=== PATIENT | female | born 1930 | race Caucasian/White ===

== ENCOUNTER 2017-02-12 16:58 | Emergency (ER) | payer MEDICARE, OTHER ==
[2017-02-12] MEDS ORDERED: ACETAMINOPHEN 325 MG TABLET ONE (17:19)
[2017-02-12] MEDS ORDERED: ACETAMINOPHEN 325 MG TABLET PO ONE (17:19)
[2017-02-12 17:36] LABS: Hematocrit 39.8 % (37.0-47.0); Hemoglobin 13.7 gm/dL (12.5-16.0); Mean Cell Volume 86.5 fl (78-100); Mean Corpuscular Hemoglobin 29.8 pg (27-31); Mean Corpuscular Hgb Conc 34.4 g/dl (32-36); Mean Platelet Volume 9.9 fl (6.0-9.5); Neutrophil # 7.4 K/mm3 (1.3-6.0); Neutrophil % 87.1 % (42-75.0); Platelet Count 216 K/mm3 (150-450); Red Cell Distribution Width 12.4 % (11.5-14.0); White Blood Count 8.4 K/mm3 (4.0-10.5)
--- NOTE | 2017-02-12 17:48 | ERNOTE ---
Time Seen by Provider: 02/12/17 17:18 Stated Complaint: COLD.DIZZY. Presenting Symptoms:: cough Source: patient, family Exam Limitations: no limitations Immunizations: IMMUNIZATION HX Immunizations Up to Date Yes History of Influenza Vaccine Yes Hx Pneumococcal Vaccination Yes Allergies/Adverse Reactions: Allergies penicillin G Adverse Reaction (Verified 06/16/15 10:02) Home Medications: HOME MEDICATIONS Multivitamin [Multi Vitamin Daily] 1 each PO DAILY 09/09/13 [Last Taken Unknown] Ibuprofen [Motrin] 200 mg PO PRN PRN 06/16/15 [Last Taken Unknown] Azithromycin [Zithromax] 250 mg PO DAILY #6 tablet 02/12/17 [Last Taken Unknown] Benzonatate [Tessalon Perle] 100 mg PO TID #20 capsule 02/12/17 [Last Taken Unknown] - History of Present Ilness Narrative: Patient presents with cough and congestion that started this morning. Complains of a low-grade fever and states that is yellowish phlegm that she is coughing up. Timing: intermittent Severity: mild Frequency/Possible Cause: Reports: occasional episodes Modifying Factors - Improves: Reports: nothing Modifying Factors - Worsens: Reports: nothing Associated Symptoms: Reports: cough Review of Systems - Review of Systems Constitutional: Present: See HPI EYE: Present: no symptoms reported ENT: Present: no symptoms reported Respiratory: Present: See HPI Cardiology: Present: no symptoms reported Gastrointestinal/Abdominal: Present: no symptoms reported Genitourinary: Present: no symptoms reported Musculoskeletal: Present: no symptoms reported Skin: Present: no symptoms reported Neurological: Present: no symptoms reported Endocrine: Present: no symptoms reported Hematologic/Lymphatic: Present: no symptoms reported Psych: Present: no symptoms reported - Patient's Past Medical History Patient History - Medical: Other Patient History - Cardiac/Respiratory: No pertinent hx Patient History - Cancer: No Hx of Cancer Patient History - Surgical Procedures: Colon Resection, Tubal Ligation, T & A Patient History - Other: None LMP (females 10-50): Menopausal - Social History Living Situations: home Abuse History: No History of abuse Psych History: No pertinent hx Does anyone smoke in the home?: No Smoking Status: Former smoker Alcohol Use: sober Drug Use: none - Immunizations Immunizations Up to Date: Yes Hx Pneumococcal Vaccination: Yes History of Influenza Vaccine: Yes Physical Exam - Physical Exam General Appearance: Present: wd/wn, alert, mild distress Head Exam: Present: normal inspection Eye Exam: Normal inspection: bilateral, PERRL: bilateral Ears, Nose, Throat: Present: normal ENT inspection, H, normal pharynx Neck: Present: normal inspection, nontender Respiratory: Present: no respiratory distress, no accessory muscle use, chest nontender, other - fine course breath sounds Cardiovascular/Chest: Present: regular rate, rhythm, no murmur, normal peripheral pulses Gastrointestinal/Abdominal: Present: normal bowel sounds, nontender, nondistended, soft, no organomegaly Rectal Exam: Present: deferred Back Exam: Present: normal inspection, normal range of motion Extremity Exam: Present: normal inspection, non-tender, no edema, normal range of motion Neurological Exam: Present: alert, oriented, normal mood/affect Skin Exam: Present: normal color, warm/dry Lymphatic Exam: Present: no adenopathy ED Progress - Results and Orders Patient's Lab Results:: I have reviewed the patient's lab results. - Vital Signs Patient's Vital Signs:: I have reviewed the patient's vital signs. Vital Signs: Vital Signs 02/12/17 17:05 Temperature 38.0 C H Pulse Rate 68 Respiratory 18 Rate Blood Pressure 132/78 O2 Sat by Pulse 96 Oximetry - X-Ray X-Ray #1 X-Ray: chest Interpretation: Reviewed by me - Progress/Reassessment Chief Complaint: Upper Respiratory Symptoms Plan - Plan Plan: Patient be started on a Z-Eduardo and we will give her Tessalon Perles for cough and she agrees to follow-up with her family physician in a week to 10 days Departure Clinical Impression: Bronchitis - Departure Disposition: Home self-care Condition: Good Instructions: Acute Bronchitis, [id number] Referrals: Tejinder Young MD [Primary Care Provider] - Prescriptions: Azithromycin [Zithromax] 250 mg PO DAILY #6 tablet Benzonatate [Tessalon Perle] 100 mg PO TID #20 capsule
[2017-02-12 17:49] LABS: Albumin * 3.7 gm/dl (3.4-5.0); Anion Gap 12.9 mmol/L (6.8-13.8); BUN/Creatinine Ratio 10.8 (9.0-21.6); Bilirubin, Total 0.5 mg/dL (0.0-1.1); Calcium * 9.1 mg/dL (7.9-10.9); Carbon Dioxide 28.7 mmol/L (24-32.6); Potassium 3.6 mmol/L (3.4-4.6); Total Protein 7.2 gm/dL (6.2-8.2)
[2017-02-12] MEDS ORDERED: AZITHROMYCIN 250 MG TABLET PO ONE (17:52)
[2017-02-12] MEDS ORDERED: AZITHROMYCIN 250 MG TABLET ONE (17:53)
[2017-02-12] MEDS ORDERED: BENZONATATE 100 MG CAPSULE PO ONE ×2 (17:58)
[2017-02-12 18:32] VITALS: BP 127/71
== END 2017-02-12 18:10 | disposition home or self-care (01) ==
LOC: ER 16:58
DX: J40 Bronchitis, not specified as acute or chronic (principal)

== ENCOUNTER 2018-05-10 09:32 | Observation (INO) ==
[2018-05-10] MEDS ORDERED: NORMAL SALINE 1,000 ML IV ONE (10:05)
[2018-05-10 10:06] LABS: Hematocrit 39.3 % (37.0-47.0); Hemoglobin 13.2 gm/dL (12.5-16.0); Mean Cell Volume 89.3 fl (78-100); Mean Corpuscular Hgb Conc 33.6 g/dl (32-36); Mean Platelet Volume 9.8 fl (8-12.5); Neutrophil # 7.9 K/mm3 (1.3-6.0); Neutrophil % 81.9 % (42-75.0); Platelet Count 252 K/mm3 (150-450); Red Cell Distribution Width 12.2 % (11.5-14.0); White Blood Count 9.7 K/mm3 (4.0-10.5)
[2018-05-10 10:30] LABS: Albumin * 3.1 gm/dl (3.4-5.0); Anion Gap 10.4 mmol/L (6.8-13.8); BUN/Creatinine Ratio 16.9 (9.0-21.6); Bilirubin, Total 0.6 mg/dL (0.0-1.1); Ca. Corrected For Albumin 10.3 mg/dL (8.4-10.2); Calcium * 9.9 mg/dL (7.9-10.9); Carbon Dioxide 31.2 mmol/L (24-32.6); Potassium 3.6 mmol/L (3.4-4.6); Total Protein 6.9 gm/dL (6.2-8.2)
[2018-05-10 10:42] LABS: Urine Bilirubin Negative (NEGATIVE); Urine Blood Negative /ul (NEGATIVE); Urine Ketone Negative (NEGATIVE); Urine Nitrite Negative (NEGATIVE); Urine Protein Negative (NEGATIVE); Urine Specific Gravity 1.015 SP.GR. (1.005-1.010); Urine Urobilinogen Normal (NORMAL)
[2018-05-10 10:51] LABS: Urine Appearance Clear (CLEAR); Urine Color Yellow; Urine RBC 0-5 /hpf (0-5); Urine WBC 0-5 /hpf (0-5)
[2018-05-10 10:52] LABS: Urine Bacteria None Seen
--- NOTE | 2018-05-10 13:01 | ERNOTE ---
Syncope ER HPI Date of Service: 05/10/18 Stated Complaint: passing out Time Seen by Provider: 05/10/18 09:57 Source: patient, family Exam Limitations: no limitations Immunizations: IMMUNIZATION HX Immunizations Up to Date Yes History of Influenza Vaccine Yes Hx Pneumococcal Vaccination Yes Allergies/Adverse Reactions: Allergies penicillin G Adverse Reaction (Verified 05/10/18 09:49) unknown Home Medications: HOME MEDICATIONS Multivitamin [Multi Vitamin Daily] 1 ea PO DAILY 09/09/13 [Last Taken Unknown] Ibuprofen [Motrin] 200 mg PO PRN PRN 06/16/15 [Last Taken Unknown] aspirin 81 mg tablet,delayed release 81 mg PO DAILY 09/20/17 [Last Taken Unknown] cholecalciferol (vitamin D3) 2,000 unit tablet 2,000 unit PO .QD tab 09/20/17 [Last Taken Unknown] omega 8-tib-dgz-fish oil 1,000 mg (120 mg-180 mg) capsule 1 cap PO DAILY cap 0 09/20/17 [Last Taken Unknown] lisinopril 2.5 mg tablet 2.5 mg PO DAILY #90 tab 10/17/17 [Last Taken Unknown] memantine 28 mg capsule sprinkle,extended release 24hr 28 mg PO DAILY #30 ea 02/13/18 [Last Taken Unknown] Nitrofurantoin/Nitrofuran Mac [Macrobid] 100 mg PO Q12H #14 cap 05/05/18 [Last Taken Unknown] - History of Present Illness Narrative: patient has had several syncopal episodes in laast few weeks Prior Episodes: Present: single episode today Symptoms prior to episode: Present: light headedness, nausea Activity at time of episode: Present: sitting Character of event: Present: brief (seconds) Location of Injury: Present: none Current Symptoms: Present: back to normal Prior Treament: Reports: recently seen, treated by physician Review of Systems - Review of Systems Constitutional: Present: See HPI, weakness, fatigue, malaise EYE: Present: no symptoms reported ENT: Present: no symptoms reported Respiratory: Present: no symptoms reported Cardiology: Present: no symptoms reported Gastrointestinal/Abdominal: Present: no symptoms reported Genitourinary: Present: no symptoms reported Musculoskeletal: Present: no symptoms reported Skin: Present: no symptoms reported Neurological: Present: See HPI, dizziness/light-headedness, weakness Endocrine: Present: no symptoms reported Hematologic/Lymphatic: Present: no symptoms reported Psych: Present: no symptoms reported All Other Systems: All systems neg except as marked Medical History (Last Reviewed 05/10/18 @ 09:49 by Maria Isabel Hunt RN) Intermittent atrial fibrillation (Chronic) Drop attack (Suspected) Bradycardia (Chronic) Near syncope (Acute) 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 Memory loss (Chronic) Hypertension (Chronic) Chronic headaches (Chronic) Onset Date: ~2015 CVA (cerebral vascular accident) (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], 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], ischemic changes in the rita [2017]- MRI Vasovagal syncope (Acute) Wears dentures Wears glasses Surgical History: Surgical History (Last Reviewed 05/10/18 @ 09:49 by Maria Isabel Hunt RN) History of colon surgery Hx of tonsillectomy H/O tubal ligation History of colon resection Onset Date: ~1999 benign mass S/P tonsillectomy and adenoidectomy Age 23 Family History: Family History (Last Reviewed 05/10/18 @ 09:49 by Maria Isabel Hunt RN) Brother , 65 yr Lung cancer COPD (chronic obstructive pulmonary disease) Father , 33 yr Pneumonia Mother , 105 yr Old age Sister Liver cancer Social History: Preferred Language Omani Smoking Status Never smoker Abuse History No History of abuse Psych History No pertinent hx Alcohol Use none Drug Use none (Last Reviewed 04/17/18 @ 10:18 by Concha Mitchell) No Social History Section defined Physical Exam - Physical Exam General Appearance: Present: mild distress, anxious Head Exam: Present: normal inspection, no evidence of injury Eye Exam: Normal inspection: bilateral, PERRL: bilateral, EOMI: bilateral Ears, Nose, Throat: Present: normal ENT inspection, normal pharynx Neck: Present: normal inspection, nontender Respiratory: Present: no respiratory distress, normal breath sounds, no accessory muscle use, chest nontender, lungs clear Cardiovascular/Chest: Present: regular rate, rhythm, no murmur, normal peripheral pulses Gastrointestinal/Abdominal: Present: normal bowel sounds, nontender, nondistended, soft, no organomegaly Back Exam: Present: normal inspection, normal range of motion, no CVA tenderness, no vertebral tenderness Extremity Exam: Present: normal inspection, non-tender, normal range of motion, no edema Skin Exam: Present: normal color, warm/dry Lymphatic Exam: Present: no adenopathy Progress - Date and Time Seen: Date and Time: 05/10/18 12:58 patient improved, case discussed with dr galdamez,accepts patient for admission to observation - Results and Orders Patient's Lab Results:: I have reviewed the patient's lab results. - Vital Signs Patient's Vital Signs:: I have reviewed the patient's vital signs. Vital Signs: Vital Signs 05/10/18 09:45 05/10/18 09:49 05/10/18 10:20 Temperature 37 C Pulse Rate 85 61 68 Respiratory Rate 17 Blood Pressure 154/66 H O2 Sat by Pulse Oximetry 95 05/10/18 10:34 05/10/18 10:45 05/10/18 11:15 Temperature Pulse Rate 63 70 Respiratory Rate 18 13 Blood Pressure 113/79 166/88 H 159/92 H O2 Sat by Pulse Oximetry 98 05/10/18 11:30 Temperature Pulse Rate 61 Respiratory Rate 19 Blood Pressure 176/78 H O2 Sat by Pulse Oximetry 98 - EKG EKG #1 EKG: other - sinus braduycardia - Progress/Reassessment Chief Complaint: Syncopal Episode Progress:: Improved - Transfer of Care Expected Disposition: Discharge Plan - Plan Plan: to admit to observation Departure Clinical Impression: Syncope and collapse - Departure Disposition: Still a patient Condition: Stable
[2018-05-10] MEDS: NORMAL SALINE 1,000 ML IV PRN ×2 (14:13→23:05)
[2018-05-10] MEDS ORDERED: IBUPROFEN 200 MG TABLET PO PRN (17:05)
--- NOTE | 2018-05-10 17:54 | HP ---
Chief Complaint - Chief Complaint Date of Service: 05/10/18 Time of Service: 12:20 Chief Complaint: syncope History of Present Illness: Mrs. French is an 87-year-old female who presented to the emergency room along another syncopal episode and fall. Her reports that she's had several falls and near syncopal episodes lately. She's been having this problem off and on for several months. She has had a Holter monitor, EKG, and an event recorder and none have been revealing of dysrhythmias that would be causing her syncope. Still it is the most likely scenario. Her Holter monitor does show intermittent atrial fibrillation and then normal sinus rhythm. The nose sustained SVT, V. tach, or pauses are seen. She has had an event recorder results are not known to me at this moment. She will be observed through the night on telemetry. 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], 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], ischemic changes in the rita [2017]- MRI Vasovagal syncope (Acute) Wears glasses Surgical History: Surgical History (Last Reviewed 05/10/18 @ 13:46 by Yamile Hernandez RN) History of colon surgery Hx of tonsillectomy H/O tubal ligation History of colon resection Onset Date: ~1999 benign mass S/P tonsillectomy and adenoidectomy Age 23 Family History: Family History (Last Reviewed 05/10/18 @ 13:46 by Yamile Hernandez RN) Brother , 65 yr Lung cancer COPD (chronic obstructive pulmonary disease) Father , 33 yr Pneumonia Mother , 105 yr Old age Sister Liver cancer Social History: Patient Lives/Resources Home Utilized Preferred Language Tunisian Do you have any jainism or No cultural preference? Smoking Status Never smoker Have you smoked in the past 12 No months Abuse History No History of abuse Psych History No pertinent hx Alcohol Use none Drug Use none (Last Reviewed 04/17/18 @ 10:18 by Concha Mitchell) No Social History Section defined Review Of Systems (GEN) - Review of Systems EENTM: Present: No Symptoms Reported Respiratory: Present: No Symptoms Reported Cardiac: Present: Syncope Abdominal: Present: No Symptoms Reported Genitourinary: Present: No Symptoms Reported Musculoskeletal: Present: No Symptoms Reported Neurological: Present: No Symptoms Reported Skin: Present: No Symptoms Reported Endocrine: Present: No Symptoms Reported Immunizations: IMMUNIZATION HX Immunizations Up to Date Yes History of Influenza Vaccine Yes Hx Pneumococcal Vaccination Yes Allergies/Adverse Reactions: Allergies Allergy/AdvReac Type Severity Reaction Status Date / Time penicillin G AdvReac unknown Verified 05/10/18 13:46 Home Medications: HOME MEDICATIONS Multivitamin [Multi Vitamin Daily] 1 ea PO DAILY 09/09/13 [Last Taken Unknown] Ibuprofen [Motrin] 200 mg PO PRN PRN 06/16/15 [Last Taken Unknown] aspirin 81 mg tablet,delayed release 81 mg PO DAILY 09/20/17 [Last Taken Unknown] cholecalciferol (vitamin D3) 2,000 unit tablet 2,000 unit PO DAILY tab 09/20/17 [Last Taken Unknown] omega 3-jzu-rii-fish oil 1,000 mg (120 mg-180 mg) capsule 1 cap PO DAILY cap 09/20/17 [Last Taken Unknown] lisinopril 2.5 mg tablet 2.5 mg PO DAILY #90 tab 10/17/17 [Last Taken Unknown] memantine 28 mg capsule sprinkle,extended release 24hr 28 mg PO DAILY #30 ea 02/13/18 [Last Taken Unknown] Exam - Exam Vital Signs: Vital Signs - Last Taken Temp 36.8 C 05/10/18 15:14 Pulse 71 05/10/18 15:14 Resp 16 05/10/18 15:14 BP 123/49 05/10/18 15:14 Pulse Ox 94 05/10/18 15:14 Constitutional: Present: Alert, Oriented x3, Cooperative, Well developed, Well nourished, No distress ENT Exam: Present: normal ENT inspection, hearing grossly normal, pharynx normal, TMs normal Eye Exam: bilateral eye: normal inspection, PERRL, EOMI Neck: Present: non-tender, limited range of motion Back Exam: Present: normal inspection Breasts: Present: Exam deferred Respiratory: Present: chest non-tender, lungs clear, normal breath sounds, no respiratory distress Cardiovascular/Chest: Present: normal peripheral pulses Peripheral Pulses: carotid (R): 2+, carotid (L): 2+, radial (R): 2+, radial (L): 2+ Abdomen: Present: Normal bowel sounds, soft, nontender, nondistended, no rebound tenderness, no hepatospenomegaly, no masses /Rectal: Present: Exam deferred Extremity: Present: normal range of motion, non-tender, normal inspection, no pedal edema, no calf tenderness Skin Exam: Present: normal color, warm/dry, no cyanosis Lymphatic: Present: no adenopathy Neurologic: Present: developer programmer II-XII nml as tested Appearance: Present: appropriate appearance Eye contact: Present: cooperative, good eye contact, normal speech, avoids eye contact Thoughts: Present: normal thought pattern, no apparent hallucination Diagnostic Studies: Abnormal Lab Results 05/10/18 05/10/18 Range/Units 10:00 10:00 Immature Gran % (Auto) 0.50 H (0.001-0.429) % Immature Gran # (Auto) 0.05 H (0.000-0.0310) K/mm3 Neutrophils % 81.9 H (42-75.0) % Lymphocytes % 9.1 L (20-51) % Neutrophils # 7.9 H (1.3-6.0) K/mm3 Lymphocytes # 0.88 L (1.5-3.5) k/mm3 Random Glucose 125 H (70-110) mg/dL Calcium Adj for Albumin 10.3 H (8.4-10.2) mg/dL ALT 9 L (19-67) U/L Albumin 3.1 L (3.4-5.0) gm/dl Laboratory Results WBC 9.7 K/mm3 (4.0-10.5) 05/10/18 10:00 RBC 4.40 M/mm3 (4.2-5.4) 05/10/18 10:00 Hgb 13.2 gm/dL (12.5-16.0) 05/10/18 10:00 Hct 39.3 % (37.0-47.0) 05/10/18 10:00 MCV 89.3 fl (78-100) 05/10/18 10:00 MCH 30.0 pg (27-31) 05/10/18 10:00 MCHC 33.6 g/dl (32-36) 05/10/18 10:00 RDW 12.2 % (11.5-14.0) 05/10/18 10:00 Plt Count 252 K/mm3 (150-450) 05/10/18 10:00 MPV 9.8 fl (8-12.5) 05/10/18 10:00 Immature Gran % (Auto) 0.50 % (0.001-0.429) H 05/10/18 10:00 Immature Gran # (Auto) 0.05 K/mm3 (0.000-0.0310) H 05/10/18 10:00 Neutrophils % 81.9 % (42-75.0) H 05/10/18 10:00 Lymphocytes % 9.1 % (20-51) L 05/10/18 10:00 Monocytes % 7.8 % (0.0-9) 05/10/18 10:00 Eosinophils % 0.4 % (0.0-3.0) 05/10/18 10:00 Basophils % 0.3 % (0.0-1.0) 05/10/18 10:00 Nucleated RBC % 0.0 k/mm3 (0-1) 05/10/18 10:00 Neutrophils # 7.9 K/mm3 (1.3-6.0) H 05/10/18 10:00 Lymphocytes # 0.88 k/mm3 (1.5-3.5) L 05/10/18 10:00 Monocytes # 0.8 k/mm3 (0.0-1.0) 05/10/18 10:00 Eosinophils # 0.0 k/mm3 (0.0-0.7) 05/10/18 10:00 Absolute Basophils 0.0 k/mm3 (0.0-0.1) 05/10/18 10:00 Sodium 140 mmol/L (132-142) 05/10/18 10:00 Plasma Sodium 140 mmol/L (130-142) 05/10/18 10:00 Potassium 3.6 mmol/L (3.4-4.6) 05/10/18 10:00 Chloride 102 mmol/L (97-106) 05/10/18 10:00 Carbon Dioxide 31.2 mmol/L (24-32.6) 05/10/18 10:00 Anion Gap 10.4 mmol/L (6.8-13.8) 05/10/18 10:00 BUN 15 mg/dL (3-23) 05/10/18 10:00 Creatinine 0.89 mg/dL (0.4-1.4) 05/10/18 10:00 Est GFR (Non-Af Amer) 64 mL/min (60-130) 05/10/18 10:00 BUN/Creatinine Ratio 16.9 (9.0-21.6) 05/10/18 10:00 Random Glucose 125 mg/dL (70-110) H 05/10/18 10:00 Calcium 9.9 mg/dL (7.9-10.9) 05/10/18 10:00 Calcium Adj for Albumin 10.3 mg/dL (8.4-10.2) H 05/10/18 10:00 Total Bilirubin 0.6 mg/dL (0.0-1.1) 05/10/18 10:00 AST 13 U/L (0-48) 05/10/18 10:00 ALT 9 U/L (19-67) L 05/10/18 10:00 Alkaline Phosphatase 80 U/L (50-170) 05/10/18 10:00 Troponin I Less than 0.017 ng/mL (0.00-0.10) 05/10/18 10:00 Total Protein 6.9 gm/dL (6.2-8.2) 05/10/18 10:00 Albumin 3.1 gm/dl (3.4-5.0) L 05/10/18 10:00 Urine Color Yellow 05/10/18 10:35 Urine Appearance Clear (CLEAR) 05/10/18 10:35 Urine pH 6.0 pH (5.0-7.0) 05/10/18 10:35 Ur Specific [place] 1.015 SP.GR. (1.005-1.010) 05/10/18 10:35 Urine Protein Negative mg/dL (NEGATIVE) 05/10/18 10:35 Urine Glucose (UA) Negative mg/dL (NEGATIVE) 05/10/18 10:35 Urine Ketones Negative mg/dL (NEGATIVE) 05/10/18 10:35 Urine Blood Negative /ul (NEGATIVE) 05/10/18 10:35 Urine Nitrate Negative (NEGATIVE) 05/10/18 10:35 Urine Bilirubin Negative mg/dl (NEGATIVE) 05/10/18 10:35 Urine Urobilinogen Normal EU/dl (NORMAL) 05/10/18 10:35 Ur Leukocyte Esterase Negative /ul (NEGATIVE) 05/10/18 10:35 Urine RBC 0-5 /hpf (0-5) 05/10/18 10:35 Urine WBC 0-5 /hpf (0-5) 05/10/18 10:35 Ur Epithelial Cells 0-5 /hpf (0-5) 05/10/18 10:35 Urine Bacteria None seen (NONE) 05/10/18 10:35 Urine Culture Comments No culture indicated 05/10/18 10:35 Assessment/Plan - Narrative Narrative: 1. Continuous cardiac monitoring 2. Repeat morning labs 3. Review the event recorder findings 4. Consider other causes of syncope such as subclavian steal, basilar insufficiency, and carotid body hypersensitivity. - Assessment/Plan (1) Syncope and collapse Problem: Acute (2) Near syncope Problem: Acute (3) Dehydration, mild Problem: Resolved
[2018-05-11 05:30] LABS: Hematocrit 32.7 % (37.0-47.0); Hemoglobin 10.8 gm/dL (12.5-16.0); Mean Cell Volume 89.1 fl (78-100); Mean Corpuscular Hemoglobin 29.4 pg (27-31); Mean Platelet Volume 9.9 fl (8-12.5); Neutrophil # 6.6 K/mm3 (1.3-6.0); Neutrophil % 76.5 % (42-75.0); Platelet Count 212 K/mm3 (150-450); Red Blood Count 3.67 M/mm3 (4.2-5.4); White Blood Count 8.6 K/mm3 (4.0-10.5)
[2018-05-11 06:21] LABS: Albumin * 2.5 gm/dl (3.4-5.0); Anion Gap 9.6 mmol/L (6.8-13.8); BUN/Creatinine Ratio 15.5 (9.0-21.6); Bilirubin, Total 0.3 mg/dL (0.0-1.1); Ca. Corrected For Albumin 9.4 mg/dL (8.4-10.2); Calcium * 8.5 mg/dL (7.9-10.9); Carbon Dioxide 28.1 mmol/L (24-32.6); Potassium 3.7 mmol/L (3.4-4.6); Total Protein 5.6 gm/dL (6.2-8.2)
[2018-05-11] MEDS: NORMAL SALINE 1,000 ML IV PRN (06:52)
[2018-05-11] MEDS ORDERED: LISINOPRIL 2.5 MG TABLET PO SCH (09:00)
[2018-05-11] MEDS ORDERED: MEMANTINE HCL 10 MG TABLET PO SCH (09:00)
[2018-05-11] MEDS ORDERED: ASPIRIN 81 MG TABLET.DR PO SCH (09:00)
--- NOTE | 2018-05-11 14:13 | DS ---
(1) Syncope and collapse Problem: Acute (2) Near syncope Problem: Acute (3) Dehydration, mild Problem: Resolved Description of Stay: Isaura French is an 87 yo wh fe. who has had several recent syncopal or near syncopal episodes. Previous attempts to work this up included ecg, holter monitoring, event recorder and none have revealed the etiology of her syncope. She has a cardiology consult next week with Dr. Tovar in [place]. She has had continuous cardiac monitoring here and there has not been any significant dysrhythmia detected. She has not had any syncopal or near syncopal events here either. I will arrange OP Echocardiography and a carotid doppler for tomorrow so that info will be available to Dr. Tovar for her appt. next week. No change in her meds. She is going to go home today and then have her OP studies tomorrow and then be admitted to [facility] for respit or LTC. Procedures Performed: none Results and Findings: Lab Pending Results 05/10/18 10:00: WBC 9.7, RBC 4.40, Hgb 13.2, Hct 39.3, MCV 89.3, MCH 30.0, MCHC 33.6, RDW 12.2, Plt Count 252, MPV 9.8, Immature Gran % (Auto) 0.50 H, Immature Gran # (Auto) 0.05 H, Neutrophils % 81.9 H, Lymphocytes % 9.1 L, Monocytes % 7.8, Eosinophils % 0.4, Basophils % 0.3, Nucleated RBC % 0.0, Neutrophils # 7.9 H, Lymphocytes # 0.88 L, Monocytes # 0.8, Eosinophils # 0.0, Absolute Basophils 0.0 05/10/18 10:00: Sodium 140, Plasma Sodium 140, Potassium 3.6, Chloride 102, Carbon Dioxide 31.2, Anion Gap 10.4, BUN 15, Creatinine 0.89, Est GFR (Non-Af Amer) 64, BUN/Creatinine Ratio 16.9, Random Glucose 125 H, Calcium 9.9, Calcium Adj for Albumin 10.3 H, Total Bilirubin 0.6, AST 13, ALT 9 L, Alkaline Phosphatase 80, Total Protein 6.9, Albumin 3.1 L 05/10/18 10:00: Troponin I Less than 0.017 05/10/18 10:35: Urine Color Yellow, Urine Appearance Clear, Urine pH 6.0, Ur Specific [place] 1.015, Urine Protein Negative, Urine Glucose (UA) Negative, Urine Ketones Negative, Urine Blood Negative, Urine Nitrate Negative, Urine Bilirubin Negative, Urine Urobilinogen Normal, Ur Leukocyte Esterase Negative, Urine RBC 0-5, Urine WBC 0-5, Ur Epithelial Cells 0-5, Urine Bacteria None seen, Urine Culture Comments No culture indicated 05/11/18 05:05: WBC 8.6, RBC 3.67 L, Hgb 10.8 L, Hct 32.7 L, MCV 89.1, MCH 29.4, MCHC 33.0, RDW 12.0, Plt Count 212, MPV 9.9, Immature Gran % (Auto) 0.30, Immature Gran # (Auto) 0.03, Neutrophils % 76.5 H, Lymphocytes % 11.3 L, Monocytes % 10.0 H, Eosinophils % 1.4, Basophils % 0.5, Nucleated RBC % 0.0, Neutrophils # 6.6 H, Lymphocytes # 0.97 L, Monocytes # 0.9, Eosinophils # 0.1, Absolute Basophils 0.0 05/11/18 05:05: Sodium 140, Plasma Sodium 140, Potassium 3.7, Chloride 106, Carbon Dioxide 28.1, Anion Gap 9.6, BUN 13, Creatinine 0.84, Est GFR (Non-Af Amer) 68, BUN/Creatinine Ratio 15.5, Random Glucose 104, Calcium 8.5, Calcium Adj for Albumin 9.4, Total Bilirubin 0.3, AST 14, ALT 6 L, Alkaline Phosphatase 62, Total Protein 5.6 L, Albumin 2.5 L Discharge Location: Home Disposition: Home self-care Condition: Stable Discharge Activity: Activity as tolerated Discharge Diet: General/regular food Referrals: Ashish Obrien DO [Primary Care Provider] - Additional Patient Instructions (free text): -Please make TCM appointment unless penitentiary discharge. Thank you! Carrie @ [phone]. Complete Home Medications List: Complete Home Medication List: Multivitamin [Multi-Vitamin Daily] 1 ea PO DAILY 09/09/13 Ibuprofen [Motrin] 200 mg PO PRN PRN 06/16/15 aspirin 81 mg tablet,delayed release 81 mg PO DAILY 09/20/17 cholecalciferol (vitamin D3) 2,000 unit tablet 2,000 unit PO DAILY tab 09/20/17 omega 0-kax-dwl-fish oil 1,000 mg (120 mg-180 mg) capsule 1 cap PO DAILY cap 09/20/17 lisinopril 2.5 mg tablet 2.5 mg PO DAILY #90 tab 10/17/17 memantine 28 mg capsule sprinkle,extended release 24hr 28 mg PO DAILY #30 ea 02/13/18 Amb Orders for Discharge: US Carotid Duplex Comp Bilat * Time Frame: 1 Day, Location: Radiology US Echocardiogram Complete * Time Frame: 1 Day, Location: Radiology
[2018-05-11 17:35] VITALS: BP 143/54
== END 2018-05-11 16:00 | disposition home or self-care (01) ==
LOC: MS 09:32 → ER 09:32 → MS 13:36
PROVIDERS: ADMIT Family Medicine; ATTEND Family Medicine
CPT/HCPCS: 36415; 80053; 81001; 84484; 85025; 93005; 96360; 96361; 97161; 99285; G0378